=== PATIENT | female | born 1970 | race Hispanic/Latino ===

== ENCOUNTER → 2019-04-12 | Outpatient (CLI) | payer OTHER ==
--- NOTE | 2019-04-12 14:01 | Diagnostic Imaging Report ---
Abdomen, 1 view. History: Kidney stones. Findings: Air is scattered throughout nondilated small and large bowel. There are no masses or abnormal calcifications. Cholecystectomy clips are present in the right upper quadrant. Small calcifications are noted laterally in the left pelvis. The osseous structures are intact. IMPRESSION: No visible renal calculi. Left pelvic calcifications are likely phleboliths but small ureteral stone cannot be excluded. Signed by: Jabier Hardy on 04/12/2019 1:59 PM
== END ==
LOC: RAD 12:18
PROVIDERS: ATTEND Urology
DX: N20.0 Calculus of kidney (principal)
CPT/HCPCS: 74018; 81025

== ENCOUNTER → 2019-04-24 | Emergency (ER) | payer SELFPAY ==
--- NOTE | 2019-04-24 13:44 | NUR ---
CALLED IN LOBBY, NO ANSWER AT THIS TIME.
== END | disposition left against medical advice (07) ==
LOC: ER 13:13
DX: R69 Illness, unspecified (principal)

== ENCOUNTER 2024-04-01 14:04 | Emergency (ER) | payer SELFPAY ==
[~2024-04-01] VITALS: Ht 157.5 cm; Wt 79.4 kg
[2024-04-01] MEDS: KETOROLAC TROMETHAMINE 30 MG/ML VIAL IM STA (15:23)
[2024-04-01] MEDS: TRAMADOL HCL 50 MG TAB PO ONE (15:23)
[2024-04-01] MEDS ORDERED: NAPROXEN250 MG PO (15:35)
[2024-04-01 15:41] VITALS: PULSE 87; RESP 18; TEMP 98
[2024-04-01 16:24] VITALS: BP 128/80; PULSE 78; RESP 17; TEMP 98; O2SAT 99
== END 2024-04-01 16:27 | disposition home or self-care (01) ==
LOC: ER 14:27
DX: S93.492A Sprain of other ligament of left ankle, initial encounter (principal); X50.1XXA Overexertion from prolonged static or awkward postures, initial encounter; Y93.01 Activity, walking, marching and hiking; Y92.89 Other specified places as the place of occurrence of the external cause; R73.03 Prediabetes
CPT/HCPCS: 73502; 73562; 73610; 73630; 99283; J1885

== ENCOUNTER 2024-04-20 13:26 | Emergency (ER) | payer SELFPAY ==
[~2024-04-20] VITALS: Ht 157.5 cm; Wt 78.6 kg
[~2024-04-20 13:26] MED LIST: NAPROXEN250 MG PO
[2024-04-20] MEDS ORDERED: ULTRAM 50MG50 MG PO (14:27)
[2024-04-20] MEDS ORDERED: CYCLOBENZAPRINE5 MG PO (14:29)
[2024-04-20 14:37] VITALS: PULSE 72; RESP 18; TEMP 99.2; O2SAT 99
== END 2024-04-20 14:37 | disposition home or self-care (01) ==
LOC: FSED 14:25
DX: M54.41 Lumbago with sciatica, right side (principal); R73.03 Prediabetes; Z87.442 Personal history of urinary calculi
CPT/HCPCS: 99283